=== PATIENT | female | born 1980 ===

== ENCOUNTER 2022-10-09 09:31 | Outpatient (REF) | payer MEDICAID, SELFPAY ==
--- NOTE | 2022-10-09 | EMG_ITS ---
Right median and ulnar motor and sensory studies were performed. Right radial sensory study was performed and paraspinal muscles were tested with a needle. IMPRESSION: 1. Itiu-jh-voakyvtg right median neuropathy across carpal tunnel. 2. Mild right ulnar neuropathy across cubital tunnel. MD MATHEUS Cherry/MONISHA / [id number]
== END 2022-10-09 09:32 | disposition home or self-care (01) ==
LOC: HO.NEURO 09:31
PROVIDERS: PCP Pediatrics; Visit Provider Pediatrics
DX: G56.01 Carpal tunnel syndrome, right upper limb (principal)
CPT/HCPCS: 95886; 95909

== ENCOUNTER 2022-12-12 10:36 | Outpatient (AMB) | payer MEDICAID, SELFPAY ==
--- NOTE | 2022-12-12 10:44 | MHC.OFFVIS ---
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 States she has had CTS symptoms for the last 5 years and has worsen in the last year. States she has on and off numbness that occurs everyday especially at night. States she was using a brace but D/C. Denies previous injection. Allergies No Known Allergies Allergy (Verified 12/12/22 10:47) Medication List - Last Reconciled 12/12/22 by Angelique Geiger MD amlodipine 10 mg PO QAM aspirin 81 mg PO QAM hydroxyzine pamoate 25 mg PO Q6H PRN lisinopril-hydrochlorothiazide 20-25 mg 1 tab PO QAM HPI HPI Comments History of Present Illness Details About 5 years, on and off, finger numbness and pain. It has progressed that it is more constant especially at night. Wakes her up at night. Numbness in almost all fingers. Drops things. No atrophy noted. No associated neck pain. EMG done by Dr. Guardado 10/09/2022 showed at least a moderate Carpal Tunnel Syndrome on the right, and ulnar neuropathy at the elbow right. She does not want to do injections. She has been wearing a wrist splint although not as consistent. [facility] Medical History (Updated 12/12/22 @ 11:03 by Angelique Geiger MD) Carpal tunnel syndrome of right wrist Social History (Updated 12/12/22 @ 10:48 by Rosemary Covarrubias [facility]) Current occupational status: employed Current occupation: direct care staff/ rt hand Review of Systems Const All systems reviewed & are unremarkable except as noted in HPI and below Physical Exam Vital Signs: BMI result Body Mass Index 37.2 Constitutional: Patient appears to be in no acute distress, well nourished and well developed. MSK: Inspection reveals appropriate head and neck positioning. Cervical ROM was full. Spurling's sign negative. No intrinsic hand weakness noted. No atrophy noted. Valerie test negative. Carpal compression test negative. Tinel sign negative. Strength is 5/5 in all muscle groups tested. No increased tone noted. Neurological: Neurologic examination of the upper and lower extremities was nonfocal with intact sensation, muscle stretch reflexes and without focal motor deficits . Miramontes?s negative bilaterally. Gait is non-antalgic without loss of balance. Results Reviewed Results Reviewed: I independently reviewed the results of the following: EMG as above I reviewed records from the following: Orthopedics Assessment & Plan Assessment & Plan (1) Carpal tunnel syndrome of right wrist: Code(s): G56.01 - Carpal tunnel syndrome, right upper limb Plan Continue wrist splint, specifically during sleep. Offered steroid injection for immediate pain relief which she defers. Reasonable to consider surgery. We did talk briefly about how surgery is done and expected recovery. Would still want her to meet Dr. Pelaez to talk more in detail. Assessment and plan discussed with patient, and patient was agreeable. All questions were answered thoroughly. Angelique Geiger MD, MELBA Board Certified, [place] [employer] and Rehabilitation (ABPMR) Board Certified, [place] Board [employer] Electrodiagnostic Medicine (ABEM) Orders: Referrals Orthopedics Referral G56.01 - Carpal tunnel syndrome, right upper limb Coding Level of Care Code New Pt Level 4 (84236) Diagnoses Carpal tunnel syndrome of right wrist G56.01
[2022-12-12 10:46] VITALS: BMI 37.2
== END 2022-12-12 11:08 | disposition home or self-care (01) ==
PROVIDERS: PCP Pediatrics; Visit Provider Physical Medicine & Rehabilitation
DX: G56.01 Carpal tunnel syndrome, right upper limb (principal)
CPT/HCPCS: 99204

== ENCOUNTER → 2022-12-12 10:36 | Outpatient (BNVA) | payer MEDICAID, SELFPAY | PROVIDERS: PCP Pediatrics; Visit Provider Physical Medicine & Rehabilitation | DX: G56.01 Carpal tunnel syndrome, right upper limb (principal) | CPT/HCPCS: 99202 ==

== ENCOUNTER → 2023-02-04 11:28 | Outpatient (BNVA) | payer MEDICAID, SELFPAY | PROVIDERS: PCP Pediatrics; Visit Provider Orthopaedic Surgery ==

== ENCOUNTER 2023-03-13 08:23 | Outpatient (REF) | payer MEDICAID, SELFPAY ==
[2023-03-13 11:18] LABS: MANUAL DIFF FLAG NO
[2023-03-13 11:53] LABS: Basophils Percent Auto 0.4 % (0-2); Eosinophils Percent Auto 0.3 % (0-4); Hematocrit 44.9 % (37.0-47.0); Imm Gran Abs Auto 0.03 X10*3/uL (0.00-0.03); Imm Gran Pct Auto 0.4 % (0.0-0.4); Lymphocytes Absolute Auto 2.6 X10*3/uL (1.2-4.9); Mean Corpuscular HGB Conc 33.4 g/dl (31.0-35.0); Mean Corpuscular Hemoglobin 27.3 pg (27.0-33.0); Mean Corpuscular Volume 81.8 fL (80.0-98.0); Mean Platelet Volume 11.7 fL (9.4-12.3); Monocytes Absolute Auto 0.5 X10*3/uL (0.1-1.2); Monocytes Percent Auto 6.6 % (2-11); Neutrophils Absolute Auto 3.9 x10*3/uL (2.0-8.3); Neutrophils Percent Auto 55.3 % (45-73); Platelet Count 366 X10*3/uL (160-400); Red Blood Count 5.49 X10*6/uL (4.20-5.50); Red Cell Distribution Width 13.8 % (11.0-16.0)
[2023-03-13 12:08] LABS: Alanine Aminotransferase 14 U/L (0-31); Albumin Level 4.6 g/dL (3.5-5.0); Alkaline Phosphatase 83 U/L (39-117); Anion Gap 15 (12-20); Aspartate Amino Transferase 15 U/L (5-31); Bilirubin Total 0.4 mg/dL (0.0-1.0); Blood Urea Nitrogen 10 mg/dL (9-16); Calcium 10.1 mg/dL (8.4-10.2); Carbon Dioxide 27 mmol/L (22-29); Chloride 104 mmol/L (96-108); Estimated Glomerular Filt Rate > 60; Glucose Random 99 mg/dL (60-115); Potassium 3.7 mmol/L (3.3-5.1); Sodium 142 mmol/L (135-145); Total Protein 8.5 g/dL (6.5-8.0)
[2023-03-13 12:28] LABS: Cortisol Random 15.3 ug/dL
== END 2023-03-13 08:24 | disposition home or self-care (01) ==
LOC: HO.HHCL 08:23
PROVIDERS: Visit Provider Student in an Organized Health Care Education/Training Program
DX: R42 Dizziness and giddiness (principal); I10 Essential (primary) hypertension
CPT/HCPCS: 36415; 80053; 82533; 85025

== ENCOUNTER 2023-03-14 08:11 | Outpatient (REF) | payer MEDICAID, SELFPAY ==
[2023-03-18 11:59] LABS: Metanephrine, Free 52 pg/mL (<=57); Normetanephrines, Free 99 pg/mL (<=148); Total Metanephrine, Free 151 pg/mL (<=205)
== END 2023-03-14 08:12 | disposition home or self-care (01) ==
LOC: HO.LAB 08:11
PROVIDERS: PCP Pediatrics; Visit Provider Student in an Organized Health Care Education/Training Program
DX: I10 Essential (primary) hypertension (principal); R42 Dizziness and giddiness
CPT/HCPCS: 36415; 83835

== ENCOUNTER 2023-03-19 10:31 | Outpatient (AMB) | payer MEDICAID, SELFPAY ==
[2023-03-19 10:46] VITALS: BMI 37.2
--- NOTE | 2023-03-19 10:46 | MHC.OFFVIS ---
Intake Vital Signs 03/19/23 10:46 Height 5 ft 3 in Weight 210 lb BMI 37.2 Handedness Right Intake Visit Reasons: OV-b/l CTS discuss sx Intake Note: Ryan is a 42 year old right hand dominant female who presents today to discuss surgery for her bilateral CTS. Patient reports her right hand is the worse when it comes to having numbness and her mental hygiene consultant is very weak. Allergies No Known Allergies Allergy (Verified 03/19/23 10:47) HPI OV-b/l CTS discuss sx HPI Details 42-year-old right hand dominant female who presents in the office today, as a new patient, for an evaluation of bilateral hand pain. The patient reports the pain is greater in the right hand over the left. She states she has been dropping items. She confirms the right upper extremity feels like to goes to sleep at night. She reports numbness and tingling through out the entire right hand. Patient works as overnight residential for Direct Care Staff. Patient has no known allergy history. Patient is currently taking, as follows: -Amlodipine 10 mg PO QAM -Aspirin 81 mg PO QAM -Hydroxyzine pamoate 25 gm PO Q6H PRN -Lisinopril-hydrochlorothiazide 20-25 mg PO QAM Patient has no known medical history. Patient has no significant surgical history. [facility] Medical History (Updated 03/19/23 @ 11:02 by [employer]) Carpal tunnel syndrome of right wrist Social History (Updated 12/12/22 @ 10:48 by Rosemary Covarrubias [facility]) Current occupational status: employed Current occupation: direct care staff/ rt hand Review of Systems Const All systems reviewed & are unremarkable except as noted in HPI and below Physical Exam Vital Signs: BMI result Body Mass Index 37.2 Const General: cooperative, healthy appearing, comfortable, no acute distress, well developed, alert and awake Orientation/consciousness: patient oriented x3 HEENT Head: Yes normal to inspection, Yes normocephalic and Yes atraumatic Eyes General: appearance normal, both eyes and all related structures Neck Neck: Yes normal visual inspection and Yes no lymphadenopathy Resp Effort & Inspection: normal respiratory effort and able to speak in complete sentences Cardio Rate: regular rate Peripheral pulses: Peripheral pulses 2+ throughout GI Inspection: Yes normal to inspection Palpation (GI): Soft to palpation Skin General skin exam: no rashes or lesions noted Neuro General: patient oriented x3 Extrem Other: Right upper extremity: Normal to inspection. No ecchymosis, erythema, or edema. Able to perform full finger flexion, extension, abduction, adduction, finger cross, okay sign, and thumbs up without deficit. Able to make a closed fist. Full elbow ROM in all planes. Positive Tinel?s at the cubital and carpal tunnel. Numbness and tingling in all digits. Capillary refill is brisk. Radial pulse intact. Psych Mental Status: mental status grossly normal Assessment & Plan Assessment & Plan (1) Cubital tunnel syndrome on right: Code(s): G56.21 - Lesion of ulnar nerve, right upper limb (2) Carpal tunnel syndrome of right wrist: Code(s): G56.01 - Carpal tunnel syndrome, right upper limb Plan Ms. Sevilla is a 42-year-old right hand dominant female who presents in the office today, as a new patient, for an evaluation of bilateral hand pain. The patient reports the pain is greater in the right hand over the left. She states she has been dropping items. She confirms the right upper extremity feels like to goes to sleep at night. She reports numbness and tingling through out the entire right hand. Patient works as overnight residential for Direct Care Staff. Patient has no known allergy history. Patient is currently taking, as follows: -Amlodipine 10 mg PO QAM -Aspirin 81 mg PO QAM -Hydroxyzine pamoate 25 gm PO Q6H PRN -Lisinopril-hydrochlorothiazide 20-25 mg PO QAM Patient has no known medical history. Patient has no significant surgical history. I discussed in detail the procedure and what to expect pre and post operatively. We discussed the risks, benefits and alternatives to the surgery as well as the rehabilitation course. The risks; which include, but are not limited to infection, bleeding, nerve injury, ongoing pain, swelling, and stiffness, perioperative risk of injury to bones and soft tissues, and blood clots. I have answered all questions and with their understanding they have consented to move forward with a right cubital and carpal tunnel release to be performed by Dr. Shannan Pelaez. Follow up will be at the post operative appointment, or sooner if needed. EMG of the right upper extremity, obtained on 10/09/2022, revealed: 1. [id number]-[id number] right median neuropathy across carpal tunnel. 2. Mild right ulnar neuropathy across cubital tunnel. Patient Instructions: Scribed for Sabrina Monique PA-C by [employer] biomedical engineering professor, on 03/19/2023 at 11:00 am, EST. Coding Level of Care Code New Pt Level 4 (66685) Diagnoses Cubital tunnel syndrome on right G56.21 Carpal tunnel syndrome of right wrist G56.01
== END 2023-03-19 11:31 | disposition home or self-care (01) ==
PROVIDERS: PCP Pediatrics; Visit Provider Physician Assistant
DX: G56.03 Carpal tunnel syndrome, bilateral upper limbs (principal); G56.21 Lesion of ulnar nerve, right upper limb
CPT/HCPCS: 99204

== ENCOUNTER → 2023-03-19 10:31 | Outpatient (BNVA) | payer MEDICAID, SELFPAY | PROVIDERS: PCP Pediatrics; Visit Provider Physician Assistant | DX: G56.01 Carpal tunnel syndrome, right upper limb (principal); G56.21 Lesion of ulnar nerve, right upper limb | CPT/HCPCS: 99212 ==

== ENCOUNTER 2024-10-18 10:02 | Outpatient (REF) | payer MEDICAID, SELFPAY ==
--- OUTSIDE RECORDS SUMMARY | 2024-10-18 09:15 | XMS_ITS | Encounter Summary ---
Author Organization [employer] Address [address] [place] [address] Care Team Providers Care Calender Let Off Helper Name Role Phone Consuelo Cristina MD Primary Care Provider [phone] Encounter Details Date Type Department Care Team ([facility] st Contact Info) Description 10/18/2024 9:15 AM EDT Office Visit [facility]S [address], [place] [id number] Consuelo Cristina MD [address] [place] [address] Primary hypertension (Primary Dx); Dizziness; Anxiety Social History Tobacco Use Types Packs/Day Years Used Date Smoking Tobacco: Former Cigarettes Passive Smoke Exposure: Never Smokeless Tobacco: Never Tobacco Cessation:Counseling Given: Not Answered Depression Answer Date Recorded Patient Health Questionnaire-9 Score 13 10/18/2024 Patient Health Questionnaire-9 Score 13 10/18/2024 Last PHQ-9: Questionnaire Data Not on file 0 10/18/2024 Housing Stability Answer Date Recorded What is your housing situation today? I have sandy adair 10/18/[address] you li ve. Do you have problems with any of the following? None of the above 10/18/2024 Food Insecurity Answer Date Recorded Within the past 12 months, y ou worried that your food would run out before you got money to buy more: Sometimes True 2024 Within the past 12 months,th e food you bought just didn't last and you didn't have enough money to get more: Never True 10/18/2024 Transportation Answer Date Recorded In the past 12 months, has l ack of transportation kept you from medical appts, meetings, work or from getting things needed for daily living? No 10/18/2024 Utilities Answer Date Recorded In the past 12 months, has t he electric, gas, oil or water company threatened to shut off services in your home? No 10/18/2024 Depression Answer Date Recorded Patient Health Questionnaire-2 Score 4 10/18/2024 Internet Access Answer Date Recorded Internet Access Q1 Yes 10/18/2024 Internet Access Q2 Not on file 10/18/2024 Comments Unknown Sex and Gender Information Value Date Recorded Sex Assigned at Female 12/16/2021 10:40 AM EDT Legal Sex Female 10:40 AM EDT Gender Identity Female 12/16/2021 10:40 AM EDT Sexual Orientation Choose not to disclose 2021 10:40 AM EDT documented as of this encounter Last Filed Vital Signs Vital Sign Reading Time Taken Comments Blood Pressure 160/90 10/18/2024 10:15 AM EDT Pulse 72 10/18/2024 9:27 AM EDT Temperature 36.4 C (97.6 F) 10/18/2024 9:27 AM EDT Respiratory Rate 20 10/18/2024 9:27 AM EDT Oxygen Saturation - - Inhaled Oxygen Concentration - - Weight 77.1 kg (170 lb) 10/18/2024 9:27 AM EDT Height 158.3 cm (5' 2.34 ) 10/18/2024 9:27 AM ED T Body Mass Index 30.76 10/18/2024 9:27 AM EDT documented in this encounter Functional Status * Over the past 2 weeks, how often have you been bothered by any of the following problems? Question Answer Date of Assessment Author Patient Health Questionnaire -2 Score 4 10/18/2024 9:55 AM EDT Trish Khalil MA * Little interest or pleasure in doing things Answer Date of Assessment Author More than half the days 10/18/2024 9:55 AM EDT Winifred Hernández MA * Feeling down, depressed, or hopeless Answer Date of Assessment Author More than half the days 10/18/2024 9:55 AM EDT Winifred Hernández MA * Trouble falling or staying asleep, or sleeping too much Answer Date of Assessment Author More than half the days 10/18/2024 9:55 AM Winifred Barragan MA * Feeling tired or having little energy Answer Date of Assessment Author Several days 10/18/2024 9:55 AM Winifred Pierce MA * Poor appetite or overeating Answer Date of Assessment Author More than half the days 10/18/2024 9:55 AM EDT Winifred Hernández MA * Feeling bad about yourself - or that you are a failure or have let yourself or your family down Answer Date of Assessment Author Several days 10/18/2024 9:55 AM Winifred Pierce MA * Trouble concentrating on things, such as reading the newspaper or watching television Answer Date of Assessment Author Several days 10/18/2024 9:55 AM Winifred Pierce MA * Moving or speaking so slowly that other people could have noticed? Or the opposite - being so fidgety or restless that you have been moving around a lot more than usual. Answer Date of Assessment Author Several days 10/18/2024 9:55 AM Winifred Pierce MA * Thoughts that you would be better off or hurting yourself in some way Answer Date of Assessment Author Several days 10/18/2024 9:55 AM Winifred Pierce MA * Patient Health Questionnaire-9 Score Answer Date of Assessment Author 13 10/18/2024 9:55 AM Winifred Pierce MA * How difficult have these problems made it for you to do your work, take care of things at home, or get along with other people? Answer Date of Assessment Author Very difficult 10/18/2024 9:55 AM Winifred Pierce MA documented as of this encounter Plan of Treatment Upcoming Encounters Date Type Department Care Team (Late st Contact Info) Description 10/28/2024 10:30 AM EDT Office Visit [facility] MED [facility] PEDS [address] [place] [address] Consuelo Cristina MD [address] [place] [address] Scheduled Orders Name Type Priority Associated Diagnoses Orde r Schedule Albumin, Random Urine W/Creatinine Lab Routine Primary hypertension Dizziness Anxiety Expected: 10/18/2024 (Approximate), Expires: 10/18/2025 Basic Metabolic Panel, Fasting Lab Routine Primary hypertension Dizziness Anxiety Expected: 10/18/2024 (Approximate), Expires: 10/18/2025 CBC auto differential Lab Routine Primary hypertension Dizziness Anxiety Expected: 10/18/2024 (Approximate), Expires: 10/18/2025 Hepatic Function Panel Lab Routine Primary hypertension Dizziness Anxiety Expected: 10/18/2024 (Approximate), Expires: 10/18/2025 Vitamin B12/Folate, Serum Panel Lab Routine Primary hypertension Dizziness Anxiety Expected: 10/18/2024, Expires: 10/18/2025 Vitamin D, 25-Hydroxy, Total, Immunoassay Lab Routine Primary hypertension Dizziness Anxiety Expected: 10/18/2024 (Approximate), Expires: 10/18/2025 TSH W/Reflex to FT4 Lab Routine Primary hypertension Dizziness Anxiety Expected: 10/18/2024 (Approximate), Expires: 10/18/2025 Lipid Panel, Standard Lab Routine Primary hypertension Dizziness Anxiety Expected: 10/18/2024 (Approximate), Expires: 10/18/2025 documented as of this encounter Visit Diagnoses Diagnosis Primary hypertension- Primary Unspecified essential hypertension Dizziness Dizziness and giddiness Anxiety Anxiety state, unspecified documented in this encounter Administered Medications Inactive Administered Medications - up to 3 most recent administrations Medication Order MAR Action Action Date Dose Rate Site cloNIDine (Catapres) tablet 0.1 mg 0.1 mg, Oral, Once, On Thu10/18/24 at 0945, For 1 doseIndications:Primary hypertension Given 10/18/2024 9:45 AM EDT 0.1 mg documented in this encounter Additional Health Concerns Assessment Noted Time PHQ-9 Depression Total Score: 13 025 9:55 AM EDT documented as of this encounter Care Teams Calender Let Off Helper Relationship Specialty Start Date End Date Consuelo Cristina MD [address] [place] [address] PCP - General Family Medicine 06/27/21 documented as of this encounter
--- OUTSIDE RECORDS SUMMARY | 2024-10-18 11:24 | XMS_ITS | Clinical Summary ---
Author Organization [employer] [facility] ity Address [address] [place] [address] Care Team Providers Care Commercial Insurance Underwriter Name Role Phone Shikha Archuleta MD Primary Care Provider [phone] Surgical History Surgery Date Site/Laterality Comments SECTION PROCEDURE: HISTORICAL DELIVERY; COMMENT: x4 Medical History Medical History Date Comments H/O sickle cell trait DX:H/O sic kle cell trait; COMMENT: fob tested negative Family History Medical History Relation Name Comments Diabetes Father Hypertension Father Hyperlipidemia Mother Hypertension Mother heart murmur Other: sickle cell disease Other 1 c ousin Other: sickle cell trait Son 1 Relation Name Status Comments Father Alive Mother Alive Other 1 Other 2 Son 1 Son 2 Social History Tobacco Use Types Packs/Day Years Used Date Smoking Tobacco: Former Smokeless Tobacco: Never Alcohol Use Standard Drinks/Week Comments No 0 (1 standard drink = 0.6 oz pur e alcohol) Comments Unknown Sex and Gender Information Value Date Recorded Sex Assigned at Not on file Legal Sex Female 5:31 AM EST Gender Identity Not on file Sexual Orientation Not on file Obstetrics History Plan of Treatment Health Maintenance Due Date Last Done Comments DTaP,Tdap,and Td Vaccines (1 - Tdap) 2001 Hepatitis B Vaccines (1 of 3 - 19+ 3-dose series) 2001 Pneumococcal Vaccine: Pediat rics (0 to 5 Years) and At-Risk Patients (6 to 49 Years) (1 of 2 - PCV) 2001 Cervical Cancer Screening: P ap Smear 11/25/2003 Cholesterol Screening (Lipid Panel) 03/17/2023 HIV Screening 03/17/2023 Hepatitis C Screening 03/17/2023 Social Influencers of Health Screening 03/17/2023 Depression Screening 02/17/2024 COVID-19 Vaccine (2023-2 5 season) 2024 Influenza Vaccine (#1) 2024 Breast Cancer Screening 11/27/2024 11/27/2022 HIB Vaccines Aged Out No longer eligi ble based on patient's age to complete this topic HPV Vaccines Aged Out No longer eligi ble based on patient's age to complete this topic Hepatitis A Vaccines Aged Out No long er eligible based on patient's age to complete this topic IPV Vaccines Aged Out No longer eligi ble based on patient's age to complete this topic MMR Vaccines Aged Out No longer eligi ble based on patient's age to complete this topic Meningococcal ACWY Vaccine Aged Out N o longer eligible based on patient's age to complete this topic Meningococcal B Vaccine Aged Out No l onger eligible based on patient's age to complete this topic RSV Immunization Patients Un octavio 20 months Aged Out No longer eligible b ased on patient's age to complete this topic Varicella Vaccines Aged Out No longer eligible based on patient's age to complete this topic Procedures Procedure Name Priority Date/Time Associated Diagnosis Comments [facility] SCREENING DIGITAL Routine 11/27/2022 2:23 PM EDT Encounter for screening mammogram for malignant neoplasm of breast from Last 3 Months or Most Recently Relevant to Health Maintenance Results * [facility] SCREENING DIGITAL (11/27/2022 2:23 PM EDT) Anatomical Region Laterality Modality Mammography 11/26/2022 9:54 AM EDT Narrative 11/27/2022 2:23 PM EDT [facility] Diagnostic Imaging Department [address] [place] [address] [id number] Patient: NALLELY RETANA D.O.B./Age/Sex: 1980 - 42 - F Unit#: [id number] [facility] Ordering Physician: DONNA CRISTINA [place] Screening Digital - 11/26/22 - 1019 Report Status:Signed EXAM: [facility] Screening Digital EXAM DATE AND TIME: 11/26/2022 10:20 AM HISTORY: Screening. Baseline exam. COMPARISON: No comparison studies. TECHNIQUE: Bilateral digital breast tomosynthesis was performed in the CC and MLO projections. Computer aided detection with engageSimply 3D 3.1 was employed. TISSUE DENSITY: b. There are scattered areas of fibroglandular density. FINDINGS: No suspicious masses, grouped microcalcifications, or areas of architectural distortion are seen. The skin and vascularity are unremarkable. IMPRESSION: No mammographic evidence of malignancy is seen. A negative mammogram in the presence of a clinically suspicious palpable abnormality does not preclude the possibility of malignancy or alter the indications for biopsy. BI-RADS: Category 1: Negative RECOMMENDATION(S): 1: Routine screening mammogram BILATERAL in 1 year. Dictating Physician: RAS PEARCE MD Electronically Signed by: RAS PEARCE MD Dic Date/Time: 11/27/221421 Sign date/Time: 11/27/221422 Procedure Note Ras Pearce MD - 03/24/2023 [facility] Diagnostic Imaging Department [address] [place] [id number] Patient: NALLELY RETANA/Age/Sex: 1980 - 42 - F Unit#: [id number] Location/Status: [facility]/REG CLI Mnemonic/Ordering Site: [facility] Ordering Physician: DONNA CRISTINA [place] Screening Digital - 11/26/22 - 1019 Report Status:Signed EXAM: [place] Screening Digital EXAM DATE AND TIME: 11/26/2022 10:20 AM HISTORY: Screening. Baseline exam. COMPARISON: No comparison studies. TECHNIQUE: Bilateral digital breast tomosynthesis was performed in the CCand MLO projections. Computer aided detection with engageSimply 3D 3.1was employed. TISSUE DENSITY: b. There are scattered areas of fibroglandular density. FINDINGS: No suspicious masses, grouped microcalcifications, or areas ofarchitectural distortion are seen. The skin and vascularity are unremarkable. IMPRESSION: No mammographic evidence of malignancy is seen. A negative mammogram in the presence of a clinically suspicious palpable abnormality does not preclude the possibility of malignancy or alter the indications for biopsy. BI-RADS: Category 1: Negative RECOMMENDATION(S): 1: Routine screening mammogram BILATERAL in 1 year. Dictating Physician: RAS PEARCE MD Electronically Signed by: RAS PEARCE MD Dic Date/Time: 11/27/221421 Sign date/Time: 11/27/221422 us Donna Cristina MD IMG BI PROCEDURES Final Resul t from Last 3 Months or Most Recently Relevant to Health Maintenance Care Teams Commercial Insurance Underwriter Relationship Specialty Start Date End Date Shikha Archuleta MD [address] [place] [phone] PCP - General 12/19/09
--- OUTSIDE RECORDS SUMMARY | 2024-10-18 11:24 | XMS_ITS | Encounter Summary ---
Author Organization [employer] Address [address] [place] [address] 7 [place] [address] Care Team Providers Care Vice President Planning Name Role Phone Consuelo Cristina MD Primary Care Provider [phone] Encounter Details Date Type Department Care Team (Late Contact Info) Description 01/27/2022 Orders Only [facility] MEDICINE [address] [place] [address] Kevin Elmore MD [address] [place], [place] [phone] Primary hypertension (Primary Dx) Social History Tobacco Use Types Packs/Day Years Used Date Smoking Tobacco: Never Assessed Comments Unknown Sex and Gender Information Value Date Recorded Sex Assigned at Female 12/16/2021 10:40 AM EDT Legal Sex Female 10:40 AM EDT Gender Identity Female 12/16/2021 10:40 AM EDT Sexual Orientation Choose not to disclose 2021 10:40 AM EDT COVID-19 Exposure Response Date Recorded In the last 10 days, have yo u been in contact with someone who was confirmed or suspected to have Coronavirus/COVID-19? No / Unsure 01/27/2022 10:54 AM EST documented as of this encounter Plan of Treatment Upcoming Encounters Date Type Department Care Team (Late Contact Info) Description 10/28/2024 10:30 AM EDT Office Visit [facility] MED & PEDS [address] [place], [place] [phone] Consuelo Cristina MD [address] [place], [place] [phone] documented as of this encounter Visit Diagnoses Diagnosis Primary hypertension- Primary Unspecified essential hypertension documented in this encounter Care Teams Vice President Planning Relationship Specialty Start Date End Date Consuelo Cristina MD [address] [place] [address] PCP - General Family Medicine 06/27/21 documented as of this encounter
--- OUTSIDE RECORDS SUMMARY | 2024-10-18 11:24 | XMS_ITS | Encounter Summary ---
Author Organization [employer] Address [address] [place] [address] [place] [address] Care Team Providers Care Telephone Technician Name Role Phone Consuelo Cristina MD Primary Care Provider [phone] Reason for Visit * Reason Onset Date Comments chart prep 10/14/2024 Encounter Details Date Type Department Care Team ([facility] Contact Info) Description 10/14/2024 Telephone [facility] CHC MED & PEDS [address] [place], [place] [phone] Consuelo Cristina MD [address] [place] [address] chart prep Social History Tobacco Use Types Packs/Day Years Used Date Smoking Tobacco: Former Cigarettes Passive Smoke Exposure: Never Smokeless Tobacco: Never Depression Answer Date Recorded Patient Health Questionnaire-9 Score 3 04/16/2023 Patient Health Questionnaire-9 Score 3 04/16/2023 Last PHQ-9: Questionnaire Data Not on file 0 04/16/2023 Housing Stability Answer Date Recorded What is your housing situation today? I have sandy adair 12/12/[address] you li ve. Do you have problems with any of the following? None of the above 12/12/2022 Food Insecurity Answer Date Recorded Within the past 12 months, y ou worried that your food would run out before you got money to buy more: Sometimes True 2022 Within the past 12 months,th e food you bought just didn't last and you didn't have enough money to get more: Sometimes True 12/12/2022 Transportation Answer Date Recorded In the past 12 months, has l ack of transportation kept you from medical appts, meetings, work or from getting things needed for daily living? No 12/12/2022 Utilities Answer Date Recorded In the past 12 months, has t he electric, gas, oil or water company threatened to shut off services in your home? No 12/12/2022 Depression Answer Date Recorded Patient Health Questionnaire-2 Score 0 04/16/2023 Comments Unknown Sex and Gender Information Value Date Recorded Sex Assigned at Female 12/16/2021 10:40 AM EDT Legal Sex Female 10:40 AM EDT Gender Identity Female 12/16/2021 10:40 AM EDT Sexual Orientation Choose not to disclose 2021 10:40 AM EDT documented as of this encounter Miscellaneous Notes * Telephone Encounter - Nohemy Phillips MA - 10/14/2024 10:18 AM EDT Chart Prep Labs: done Images: done Referrals: complete Vaccines due: Hep B Screenings: mammogram Overdue care gaps: SBIRT, SDOH, PHQ-9, Disability screen, and Tobacco documented in this encounter Plan of Treatment Upcoming Encounters Date Type Department Care Team ([facility] st Contact Info) Description 10/28/2024 10:30 AM EDT Office Visit [facility] CHC MED & PEDS [address] [place] [address] Consuelo Cristina MD [address] [place] [address] documented as of this encounter Visit Diagnoses Not on filedocumented in this encounter Additional Health Concerns Assessment Noted Time PHQ-9 Depression Total Score: 3 04/16/19 24 10:42 AM EST documented as of this encounter Care Teams Telephone Technician Relationship Specialty Start Date End Date Consuelo Cristina MD [address] [place] [address] PCP - General Family Medicine 06/27/21 documented as of this encounter
--- OUTSIDE RECORDS SUMMARY | 2024-10-18 11:24 | XMS_ITS | Clinical Summary ---
Author Organization [facility] Address [address] [place] [address] Care Team Providers Care Fitness Director Name Role Phone Yodit Flannery PA-C Primary Care Provider [phone] Source Comments PLEASE NOTE, if this patient is a minor, it may be UNLAWFUL to discuss sensitive information that is contained in these records (such as FAMILY PLANNING, MENTAL HEALTH or SUBSTANCE ABUSE) with the minor patient's parent or other person without the patient's specific authorization.[facility] Allergies No known active allergies Medications ammonium lactate (LAC-HYDRIN) 12 % lotionIndicatio ns:Rash, skin Apply topically 2 (two) times daily. 57 g 2 4 Active Active Problems Problem Noted Date Diagnosed Date Rash, skin 05/24/2013 Family History Medical History Relation Name Comments Diabetes Father Arthritis Mother Heart Problems Mother murmur High Cholesterol Mother Hypertension Mother Relation Name Status Comments Brother 1 Alive Brother 2 Alive Daughter 1 Alive Daughter 2 Alive Father Alive Mother Alive Sister 1 Alive Sister 2 Alive Son 1 Alive Son 2 Alive Social History Tobacco Use Types Packs/Day Years Used Date Smoking Tobacco: Some Days Cigarettes Tobacco Cessation:Ready to Q uit: Yes Alcohol Use Standard Drinks/Week Comments No 0 (1 standard drink = 0.6 oz pur e alcohol) Comments Unknown Sex and Gender Information Value Date Recorded Sex Assigned at Not on file Legal Sex Female 11:36 AM PDT Gender Identity Not on file Sexual Orientation Not on file Last Filed Vital Signs Vital Sign Reading Time Taken Comments Blood Pressure 120/90 05/24/2013 10:22 AM EDT Pulse 80 05/24/2013 10:22 AM EDT Temperature 36.7 C (98 F) 05/24/2013 10:22 AM EDT Respiratory Rate 20 05/24/2013 10:22 AM EDT Oxygen Saturation - - Inhaled Oxygen Concentration - - Weight 86.6 kg (191 lb) 05/24/2013 10:22 AM EDT Height 160 cm (5' 3 ) 05/24/2013 10:22 AM EDT Body Mass Index 33.83 05/24/2013 10:22 AM EDT Plan of Treatment Not on file Insurance [facility] Member Subscriber Plan / Payer (Ef fective 2012-Present) Name:Ryan Sevilla Relation to Subscriber:Self Name:Ryan Sevilla Payer ID:[id number] Group ID:Not on file Type:Medicaid Address: [facility] [id number] [place] [address] Care Teams Fitness Director Relationship Specialty Start Date End Date Yodit Flannery PA-C [address] [place] [phone] PCP - General Internal Medicine 05/25/13
--- OUTSIDE RECORDS SUMMARY | 2024-10-18 11:24 | XMS_ITS | Encounter Summary ---
Author Organization [employer] Address [address] [facility] 7t [place] [address] Care Team Providers Care Act Tutor Name Role Phone Consuelo Cristina MD Primary Care Provider [phone] Encounter Details Date Type Department Care Team (Latest Contact Info) Description 10/18/2024 Travel Social History Tobacco Use Types Packs/Day Years [...] AM EDT documented as of this encounter Functional Status * Over the [...] 10/18/2024 9:55 AM Winifred Barragan MA * Trouble falling or staying asleep, [...] 9:55 AM Winifred Barragan MA * Feeling bad about yourself - [...] Assessment Author Several days 10/18/2024 9:55 AM EDT Winifred Khalil MA * Thoughts that you would be better off or hurting yourself in some way Answer Date of Assessment Author Several days 10/18/2024 9:55 AM ANDREINAT Winifred Khalil MA * Patient Health Questionnaire-9 Score Answer Date of Assessment Author 13 10/18/2024 9:55 AM EDT Winifred Khalil MA * How difficult have these problems made it for you to do your work, take care of things at home, or get along with other people? Answer Date of Assessment Author Very difficult 10/18/2024 9:55 AM EDT Winifred Khalil MA documented as of this encounter Plan of Treatment Upcoming Encounters Date Type Department Care Team ([facility] st Contact Info) Description 10/28/2024 10:30 AM EDT Office Visit [facility] MED & PEDS [address] [place] [address] Consuelo Cristina MD [address] [place] [address] documented as of this encounter Visit Diagnoses Not on filedocumented in this encounter Additional Health Concerns Assessment Noted Time PHQ-9 Depression Total Score: 025 9:55 AM EDT documented as of this encounter Care Teams Act Tutor Relationship Specialty Start Date End Date Consuelo Cristina MD [address] [place] [address] PCP - General Family Medicine 06/27/21 documented as of this encounter
--- OUTSIDE RECORDS SUMMARY | 2024-10-18 11:24 | XMS_ITS | Clinical Summary ---
Author Organization [employer] Address [address] [facility] 7t [place] [address] Care Team Providers Care Senior Manufacturing Engineer Name Role Phone Consuelo Cristina MD Primary Care Provider [phone] Allergies No known active allergies Medications ibuprofen 800 MG tablet take 1 tablet by oral route 3 times every day with food x 7 days at onset of menstrual cramps 10/23/19 22 Active Blood Pressure kit Active hydrOXYzine pamoate (Vistaril) 25 MG capsule Take 1 capsule (25 mg) by mouth every 6 (six) hours if needed for itching for up to 15 days. 30 capsule 1 09/04/19 23 Active aluminum chloride (Drysol) 20 % external solution Add topically to palms and axillary region nightly 60 mL 11 11/07/19 23 Active magnesium oxide (Mag-Ox) 400 (240 Mg) MG tablet TAKE 1 TABLET (400 MG) BY MOUTH IN THE MORNING 90 tablet 2 06/24/19 24 Active lisinopril-hyd roCHLOROthiazi de 20-25 MG tablet Take 1 tablet by mouth Once per day. 90 tablet 3 10/19/19 25 Active amLODIPine (Norvasc) 10 MG tablet Take 1 tablet (10 mg) by mouth Once per day. 90 tablet 3 10/19/19 25 026 Active lisinopril-hyd roCHLOROthiazi de 20-25 MG tablet Take 1 tablet by mouth in the morning. 30 tablet 5 08/13/19 23 025 Discontinued(Re order (will not trigger notification to Pharmacy)) amLODIPine (Norvasc) 10 MG tablet Take 1 tablet (10 mg) by mouth in the morning. 30 tablet 11 08/30/19 23 025 Discontinued(Re order (will not trigger notification to Pharmacy)) Hospital, Clinic, or Other Facility Administered Medication Ordered Dose Route Frequency Start Date End Date Status cloNIDine (Catapres) tablet 0.1 mgIndications:Primary hypertension 0.1 mg PO Once 10/18/2024 10/18/2024 Ended Active Problems Problem Noted Date Diagnosed Date Headache 03/13/2023 Anxiety 09/03/2022 Primary hypertension 04/02/2022 Assessment & Plan (03/13/2023 5:58 AM EST): Having epsiodes of new intense HARP,palpitations ,hot body sensation ,presyncope and focalizing neurologic symptoms Dxed w HTN for last year w episodes of elevated BP when symptomatic. Here examination is normal , no concerning neuro exam From description of symptoms will need to r/o pheochromocytoma as a possible explanation for several of her symptoms ,other possibility is complicated migraine HARP w neurologic symptoms but not explaining all symptoms -metanephrines ,am cortisol,CBC,chem -alarm signs and symptoms discussed w pt -start PO MAG daily and excedrin as prn for HARP -start doxazosin 1 mg daily for alpha price effect to help w HTN -bring home BP readings to her PCP -got apt to f up labs and BP in 3 weeks -will hold on brain MRI -currently complete neuro exam is normal and had normal CT brain in ER but will need to consider Overweight 04/02/2022 Fibroid tumor 04/02/2022 Encounters Date Type Department Care Team Description 10/18/2024 9:15 AM EDT Office Visit [facility] MED & PEDS [address] [place] [address] Consuelo Cristina MD Primary hypertension (Primary Dx); Dizziness; Anxiety 10/18/2024 Travel 10/14/2024 Telephone [facility] MED & PEDS [address] [place] [address] Consuelo Cristina MD chart prep 10/10/2024 Patient Outreach [facility] MEDICINE [address] [place], [place] [phone] Consuelo Cristina MD Pre-visit Planning (Pre visit planning LVM ) 10/03/2024 Telephone [facility] MED & PEDS [address] [place] [address] Consuelo Cristina MD Nurse Triage from Last 3 Months Immunizations Immunization Administration Dates Next Due Influenza, IIV3, injectable 11/18/2016 Tdap 11/18/2016 Social History Tobacco Use Types Packs/Day Years [...] not to disclose 2021 10:40 AM EDT Last Filed Vital Signs Vital Sign Reading Time Taken Comments Blood Pressure 160/90 10/18/2024 10:15 AM EDT Pulse 72 10/18/2024 9:27 AM EDT Temperature 36.4 C (97.6 F) 10/18/2024 9:27 AM EDT Respiratory Rate 20 10/18/2024 9:27 AM EDT Oxygen Saturation 99% 03/12/2023 1:33 PM EST Inhaled Oxygen Concentration - - Weight 77.1 kg (170 lb) 10/18/2024 9:27 AM EDT Height 158.3 cm (5' 2.34 ) 10/18/2024 9:27 AM ED T Body Mass Index 30.76 10/18/2024 9:27 AM EDT Plan of Treatment Upcoming Encounters Date Type Department Care Team (Late st Contact Info) Description 10/28/2024 10:30 AM EDT Office Visit [facility] MED & PEDS [address] [place] [address] Consuelo Cristina MD [address] [place] [address] Health Maintenance Due Date Last Done Comments HIV Screening 1982 Family Planning (PISQ) 1997 HPV Vaccines (1 - 3-dose series) 1997 Hepatitis C Screening 2000 Hepatitis B Vaccines (1 of 3 - 19+ 3-dose series) 2001 Mammogram 2022 COVID-19 Vaccine ( - 2023-2 5 season) 2024 Influenza Vaccine (#1) 2024 11/18/2016 Depression Monitoring 04/17/2025 10/18/2024 , 10/18/2024 Alcohol/Substance Use Screening 10/18/2025 10/18/2024 Disability Screening 10/18/2025 10/18/2024 SDOH Screening 10/18/2025 10/18/2024 Tobacco Screening 10/18/2025 10/18/2024 Lipid Panel 06/28/2026 06/28/2021 Cervical Cancer Screening 09/03/2026 HPV/Cotest 09/03/2026 09/03/2021 Pap Smear 09/03/2026 09/03/2021 DTaP/Tdap/Td Vaccines (2 - T d or Tdap) 11/18/2026 11/18/2016 Zoster Vaccines (1 of 2) 2032 RSV Patients and Patients Aged 60 years or older (1 - 1-dose 75+ series) 2057 HIB Vaccines Aged Out No longer eligi [...] patient's age to complete this topic Meningococcal Vaccine Aged Out No therese cornelius eligible based on patient's age to complete this topic Pneumococcal Vaccine: Pediatrics (0 to 5 Years) and At-Risk Patients (6 to 49) Years Aged Out No longer eligible b ased on patient's age to complete this topic RSV under 20 months Aged Out No longe r eligible based on patient's age to complete this topic Rotavirus Vaccines Aged Out No longer eligible based on patient's age to complete this topic Procedures Procedure Name Priority Date/Time Associated Diagnosis Comments THINPREP IMAGING PAP AND HPV MRNA E6/E7 WITH REFLEX TO HPV 16,18/45 Routine 09/03/2021 9:35 AM EDT LIPID PANEL, STANDARD Routine 06/28/2021 8:31 AM EDT from Last 3 Months or Most Recently Relevant to Health Maintenance Results * THINPREP TIS PAP AND HPV mRNA E6/E7 WITH REFLEX TO HPV 16,18/45 (09/03/2021 9:35 AM EDT) Clinical Information: None given [facility] COMMENT SEE COMMENT [facility] Comment: EXPLANATORY NOTE: The Pap is a screening test for cervical cancer. It is not a diagnostic test and is subject to false negative and false positive results. It is most reliable when a satisfactory sample, regularly obtained, is submitted with relevant clinical findings and history, and when the Pap result is evaluated along with historic and current clinical information. COMMENT: This Pap test has been evaluated with computer assisted technology. [facility] Cytotechnologis t: SEE COMMENT [facility] Comment: CXP, CT(ASCP) CT screening location: [place] [address] HPV nRNA E6/E7 Not Detected Not Detected [facility] Comment: Methodology: Explosive Operator Grenade-Mediated Amplification This assay detects E6/E7 viral messenger RNA (mRNA) from 14 high-risk HPV types (16,18,31,33,35,39,45,51,52,56,58,59,66,68). Cervical sources are required for HPV testing. If a vaginal source from a patient who has had a total hysterectomy with removal of cervix was submitted, please contact the testing laboratory for alternative testing options. For additional information, please refer to http://education.55tuan.com/faq/RKX454e3 (This link if provided for information/ educational purposes only.) Interpretation/ Result: Negative for intraepithelial lesion or malignancy. [facility] LMP: [id number] [facility] Prev. BX: NONE GIVEN [facility] Prev. PAP: 2017 NIL [facility] SOURCE: None given [facility] Statement Of Adequacy: SEE COMMENT [facility] Comment: Satisfactory for evaluation. Endocervical/transformation zone component absent. 09/03/2021 9:35 AM EDT us Yumiko [facility]URESHI LAB PATHOLOGY ORDERABLES Final Result [facility] [address] * (ABNORMAL) LIPID PANEL, STANDARD (06/28/2021 8:31 AM EDT) Chol/HDLC Ratio 5.2(H) <5.0 (calc) [facility] Cholesterol, Total 182 <200 mg/dL [facility] HDL Cholesterol 35(L) > OR = 50 mg/dL [facility] LDL Cholesterol 121(H) mg/dL (calc) [facility] Comment: Reference range: <100 Desirable range <100 mg/dL for primary prevention; <70 mg/dL for patients with CHD or diabetic patients with > or = 2 CHD risk factors. LDL-C is now calculated using the Kermit calculation, which is a validated novel method providing better accuracy than the Friedewald equation in the estimation of LDL-C. Hector MCKINNEY et al. SHARRON. 2013;310(19): 4155-3992 (http://education.Likva.Ocean Seed/faq/GMC717) Non-HDL Cholesterol 147(H) <130 mg/dL (calc) [facility] Comment: For patients with diabetes plus 1 major ASCVD risk factor, treating to a non-HDL-C goal of <100 mg/dL (LDL-C of <70 mg/dL) is considered a therapeutic option. Triglycerides 150(H) <150 mg/dL [facility] 06/28/2021 8:31 AM EDT us Consuelo Cristina MD LAB BLOOD ORDERABLES Final Re sult [facility] [address] from Last 3 Months or Most Recently Relevant to Health Maintenance Insurance C3 Care Teams Senior Manufacturing Engineer Relationship Specialty Start Date End Date Consuelo Cristina MD [address] [place] [address] [place] [address] PCP - General Family Medicine 06/27/21
[2024-10-18 14:32] LABS: MANUAL DIFF FLAG NO
[2024-10-18 14:35] LABS: Hematocrit 39.8 % (37.0-47.0); Hemoglobin 13.6 g/dl (12.0-16.0); Imm Gran Abs Auto 0.04 X10*3/uL (0.00-0.03); Imm Gran Pct Auto 0.4 % (0.0-0.4); Lymphocytes Absolute Auto 2.7 X10*3/uL (1.2-4.9); Mean Corpuscular HGB Conc 34.2 g/dl (31.0-35.0); Mean Corpuscular Hemoglobin 28.2 pg (27.0-33.0); Mean Corpuscular Volume 82.4 fL (80.0-98.0); NRBC Abs Auto 0.000 X10*3/uL (0.0-0.012); NRBC Pct Auto 0.0 /100WBC (0.0-0.2); Platelet Count 281 X10*3/uL (160-400); Red Blood Count 4.83 X10*6/uL (4.20-5.50); White Blood Count 8.9 X10*3/uL (4.8-10.8)
[2024-10-18 14:54] LABS: Alanine Aminotransferase 18 U/L (0-31); Albumin Level 4.7 g/dL (3.5-5.0); Alkaline Phosphatase 70 U/L (39-117); Anion Gap 11 (12-20); Aspartate Amino Transferase 21 U/L (5-31); Blood Urea Nitrogen 10 mg/dL (9-16); Calcium 9.3 mg/dL (8.4-10.2); Carbon Dioxide 27 mmol/L (22-29); Chloride 108 mmol/L (96-108); Cholesterol 226 mg/dL (<200); Estimated Glomerular Filt Rate > 60; HDL Cholesterol 42 mg/dL (>40); Potassium 4.1 mmol/L (3.3-5.1); Sodium 142 mmol/L (135-145); Total Protein 7.8 g/dL (6.5-8.0); Triglycerides 130 mg/dL (<150)
[2024-10-18 15:11] LABS: Microalbum/Creatinine Ratio Ur 848.7 ug/mg cr (<30)
[2024-10-18 15:26] LABS: Folate 12.0 ng/mL (> or = 4.0); Vitamin B12 371 pg/mL (200-900)
== END 2024-10-18 10:03 | disposition home or self-care (01) ==
LOC: HO.CHCLDS 10:02
PROVIDERS: Visit Provider Pediatrics
DX: R42 Dizziness and giddiness (principal); F41.9 Anxiety disorder, unspecified; I10 Essential (primary) hypertension
CPT/HCPCS: 36415; 80048; 80061; 80076; 82043; 82306; 82570; 82607; 82746; 84443; 85025